=== PATIENT | male | born 1970 | race Caucasian/White ===

== ENCOUNTER 2021-01-05 10:20 | Emergency (ER) | payer BC ==
--- NOTE | 2021-01-05 10:37 | EDM.PDOCBH ---
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 He has not been eating since wed. He has been doing some vomiting. Onset: Gradual Duration: Week(s): Location: Reports: Generalized - Related Data Allergies Allergy/AdvReac Type Severity Reaction Status Date / Time No Known Allergies Allergy Verified 01/05/21 10:34 Home Meds: Home Meds NK [No Known Home Meds] 01/05/21 [History] ED ROS GENERAL - Review of Systems Review Of Systems: See Below Constitutional: Reports: No Symptoms HEENT: Reports: No Symptoms Respiratory: Reports: No Symptoms Cardiovascular: Reports: No Symptoms Endocrine: Reports: No Symptoms GI/Abdominal: Reports: Nausea, Vomiting : Reports: No Symptoms, Other ( urine looks very dark) Musculoskeletal: Reports: No Symptoms Skin: Reports: No Symptoms Neurological: Reports: No Symptoms Psychiatric: Reports: No Symptoms ED EXAM, BEHAVIORAL HEALTH - Physical Exam Exam: See Below Text/Narrative:: pt arrived with a history of drinking very heavy for the past 3-4 weeks. He is definitely wanting to stop drinking. He wishes to go to detox. Exam Limited By: No Limitations General Appearance: Alert, Anxious, Mild Distress Ears: Normal TMs Nose: Normal Inspection Throat/Mouth: Normal Inspection Head: Atraumatic Neck: Normal Inspection Respiratory/Chest: No Respiratory Distress Cardiovascular: Regular Rate, Rhythm GI/Abdominal: Soft, Non-Tender (Male) Exam: Deferred Rectal (Males) Exam: Deferred Back Exam: Normal Inspection Extremities: Normal Inspection COURSE, BEHAVIORAL HEALTH COMP - Course Vital Signs: Last Vital Signs Temp 36.3 C 01/05/21 10:39 Pulse 87 01/05/21 12:14 Resp 18 01/05/21 12:14 BP 142/102 H 01/05/21 12:14 Pulse Ox 96 01/05/21 10:39 Orders, Labs, Meds: Laboratory Tests 01/05/21 01/05/21 01/05/21 Range/Units 10:40 10:40 10:43 WBC 10.0 (4.5-11.0) K/uL RBC 5.95 H (4.30-5.90) M/uL Hgb 18.1 H* (12.0-15.0) g/dL Hct 49.1 (40.0-54.0) % MCV 83 (80-98) fL MCH 30 (27-31) pg MCHC 37 H (32-36) % Plt Count 332 (150-400) K/uL Neut % (Auto) 79.9 H (36-66) % Lymph % (Auto) 12.1 L (24-44) % [place] % (Auto) 6.0 (2-6) % Eos % (Auto) 1.5 L (2-4) % Baso % (Auto) 0.5 (0-1) % Sodium (140-148) mmol/L Potassium (3.6-5.2) mmol/L Chloride (100-108) mmol/L Carbon Dioxide (21-32) mmol/L Anion Gap (5.0-14.0) mmol/L BUN (7-18) mg/dL Creatinine (0.8-1.3) mg/dL Est Cr Clr Drug Dosing mL/min Estimated GFR (MDRD) (>60) Glucose (74-106) mg/dL Calcium (8.5-10.1) mg/dL Total Bilirubin (0.2-1.0) mg/dL AST (15-37) U/L ALT (12-78) U/L Alkaline Phosphatase (46-116) U/L Total Protein (6.4-8.2) g/dL Albumin (3.4-5.0) g/dL Globulin (2.3-3.5) g/dL Albumin/Globulin Ratio (1.2-2.2) Urine Color Yellow (YELLOW) Urine Appearance Clear (CLEAR) Urine pH 6.0 (5.0-8.0) Ur Specific [place] 1.020 (1.008-1.030) Urine Protein Trace H (NEGATIVE) mg/dL Urine Glucose (UA) Negative (NEGATIVE) mg/dL Urine Ketones 15 H (NEGATIVE) mg/dL Urine Occult Blood Small H (NEGATIVE) Urine Nitrite Negative (NEGATIVE) Urine Bilirubin Negative (NEGATIVE) Urine Urobilinogen 0.2 (0.2-1.0) EU/dL Ur Leukocyte Esterase Negative (NEGATIVE) Urine RBC 5-10 H (0-5) Urine WBC 0-5 (0-5) Ur Epithelial Cells Not seen Amorphous Sediment Not seen Urine Bacteria Rare Urine Mucus Few Urine Opiates Screen Negative (NEGATIVE) Ur Oxycodone Screen Negative (NEGATIVE) Urine Methadone Screen Negative (NEGATIVE) Ur Propoxyphene Screen Negative (NEGATIVE) Ur Barbiturates Screen Negative (NEGATIVE) Ur Tricyclics Screen Negative (NEGATIVE) Ur Phencyclidine Scrn Negative (NEGATIVE) Ur Amphetamine Screen Negative (NEGATIVE) U Methamphetamines Scrn Negative (NEGATIVE) Urine MDMA Screen Negative (NEGATIVE) U Benzodiazepines Scrn Negative (NEGATIVE) U Cocaine Metab Screen Negative (NEGATIVE) U Marijuana (THC) Screen Negative (NEGATIVE) Ethyl Alcohol mg/dL 01/05/21 01/05/21 Range/Units 10:43 10:43 WBC (4.5-11.0) K/uL RBC (4.30-5.90) M/uL Hgb (12.0-15.0) g/dL Hct (40.0-54.0) % MCV (80-98) fL MCH (27-31) pg MCHC (32-36) % Plt Count (150-400) K/uL Neut % (Auto) (36-66) % Lymph % (Auto) (24-44) % [place] % (Auto) (2-6) % Eos % (Auto) (2-4) % Baso % (Auto) (0-1) % Sodium 138 L (140-148) mmol/L Potassium 4.1 (3.6-5.2) mmol/L Chloride 99 L (100-108) mmol/L Carbon Dioxide 25 (21-32) mmol/L Anion Gap 18.1 H (5.0-14.0) mmol/L BUN 7 (7-18) mg/dL Creatinine 0.9 (0.8-1.3) mg/dL Est Cr Clr Drug Dosing 103.64 mL/min Estimated GFR (MDRD) > 60 (>60) Glucose 106 (74-106) mg/dL Calcium 9.1 (8.5-10.1) mg/dL Total Bilirubin 2.6 H (0.2-1.0) mg/dL AST 25 (15-37) U/L ALT 33 (12-78) U/L Alkaline Phosphatase 97 (46-116) U/L Total Protein 7.7 (6.4-8.2) g/dL Albumin 4.1 (3.4-5.0) g/dL Globulin 3.6 H (2.3-3.5) g/dL Albumin/Globulin Ratio 1.1 L (1.2-2.2) Urine Color (YELLOW) Urine Appearance (CLEAR) Urine pH (5.0-8.0) Ur Specific [place] (1.008-1.030) Urine Protein (NEGATIVE) mg/dL Urine Glucose (UA) (NEGATIVE) mg/dL Urine Ketones (NEGATIVE) mg/dL Urine Occult Blood (NEGATIVE) Urine Nitrite (NEGATIVE) Urine Bilirubin (NEGATIVE) Urine Urobilinogen (0.2-1.0) EU/dL Ur Leukocyte Esterase (NEGATIVE) Urine RBC (0-5) Urine WBC (0-5) Ur Epithelial Cells Amorphous Sediment Urine Bacteria Urine Mucus Urine Opiates Screen (NEGATIVE) Ur Oxycodone Screen (NEGATIVE) Urine Methadone Screen (NEGATIVE) Ur Propoxyphene Screen (NEGATIVE) Ur Barbiturates Screen (NEGATIVE) Ur Tricyclics Screen (NEGATIVE) Ur Phencyclidine Scrn (NEGATIVE) Ur Amphetamine Screen (NEGATIVE) U Methamphetamines Scrn (NEGATIVE) Urine MDMA Screen (NEGATIVE) U Benzodiazepines Scrn (NEGATIVE) U Cocaine Metab Screen (NEGATIVE) U Marijuana (THC) Screen (NEGATIVE) Ethyl Alcohol 1 mg/dL Medications Discontinued Medications Generic Name Dose Route Start Last Admin Trade Name Freq PRN Reason Stop Dose Admin Sodium Chloride 1,000 mls @ 999 mls/hr 01/05/21 11:15 01/05/21 11:08 Normal Saline IV 999 mls/hr ASDIRECTED JI Administration Sodium Chloride 1,000 mls @ 999 mls/hr 01/05/21 12:15 01/05/21 12:09 Normal Saline IV 999 mls/hr ASDIRECTED JI Administration Lorazepam 0.5 mg 01/05/21 11:04 01/05/21 11:16 Lorazepam 2 Mg/Ml Sdv IVPUSH 01/05/21 11:05 Not Given ONETIME ONE Lorazepam 1 mg 01/05/21 11:06 01/05/21 11:12 Lorazepam 2 Mg/Ml Sdv IVPUSH 01/05/21 11:07 1 mg ONETIME ONE Administration Lorazepam 1 mg 01/05/21 12:26 01/05/21 13:13 Lorazepam 2 Mg/Ml Sdv IVPUSH 01/05/21 12:27 1 mg ONETIME ONE Administration Lorazepam 1 mg 01/05/21 14:22 01/05/21 14:26 Lorazepam 1 Mg Tab PO 01/05/21 14:23 1 mg ONETIME ONE Administration Nicotine 21 mg 01/05/21 14:00 01/05/21 14:16 Nicotine 21 Mg/24 Hr Patch TRDERM 01/05/21 14:01 21 mg ONETIME ONE Administration Medical Clearance: 01/05/21 12:44 pt has good looking labs. His bp has been borderline. He has not been on meds to control his bp. Pt was dehydrated so he was given 2 liters of fluid. Departure - Departure Time of Disposition: 14:35 Disposition: DC/Tfer to [facility] Hosp/Unit [facility] Condition: Fair Clinical Impression: ETOH abuse, Elevated BP without diagnosis of hypertension - Discharge Information Referrals: PCP,Unknown [Primary Care Provider] - Forms: ED Department Discharge Care Plan Goals: transfer to [place] for detox. Sepsis Event Note (ED) - Evaluation Sepsis Screening Result: No Definite Risk
[2021-01-05] MEDS ORDERED: LORazepam 2 MG/ML SDV IVPUSH ONE ×3 (11:04→12:26)
[2021-01-05] MEDS ORDERED: Sodium Chloride 0.9% 1,000 ML IV SCH ×2 (11:15→12:15)
[2021-01-05] MEDS ORDERED: Nicotine 21 MG/24 Hr Patch TRDERM ONE (14:00)
[2021-01-05] MEDS ORDERED: LORazepam 1 MG Tab PO ONE (14:22)
== END 2021-01-05 14:32 ==
LOC: JP.ED 10:20
DX: F10.10 Alcohol abuse, uncomplicated (principal); R03.0 Elevated blood-pressure reading, without diagnosis of hypertension; Y90.0 Blood alcohol level of less than 20 mg/100 ml
CPT/HCPCS: 36415; 80053; 80305; 80307; 81001; 85025; 96374; 96376; 99284; A9270; J2060; J7030

== ENCOUNTER 2021-02-07 00:13 | Emergency (ER) | payer BC ==
[2021-02-07] MEDS ORDERED: LORazepam 1 MG Tab PO ONE (01:02)
[2021-02-07] MEDS ORDERED: Ketorolac 30 MG/ML SDV IM ONE (01:02)
--- NOTE | 2021-02-07 01:05 | EDM.PDOCBH ---
ED HPI GENERAL MEDICAL PROBLEM - General Chief Complaint: Drug or Alcohol Abuse Stated Complaint: EVAL Time Seen by Provider: 02/07/21 00:59 Source of Information: Reports: Patient, Old Records, RN Notes Reviewed History Limitations: Reports: Intoxication - History of Present Illness INITIAL COMMENTS - FREE TEXT/NARRATIVE: 42-year-old gentleman presents emergency department day complaint of headache, he has been consuming alcohol this evening has had troubles with high blood pressure was evaluated emergency department last month same complaint elevated blood pressures at that time treated with Ativan which did provide some relief. [place] but [place] returning home this week and Frontal Headache Pain Score (Numeric/FACES): 7 - Related Data Allergies Allergy/AdvReac Type Severity Reaction Status Date / Time No Known Allergies Allergy Verified 02/07/21 00:58 Home Meds: Home Meds lisinopriL [Lisinopril] 10 mg PO DAILY #30 tablet 02/07/21 [Rx] Past Medical History Cardiovascular History: Reports: Hypertension Psychiatric History: Reports: Addiction - Past Surgical History Musculoskeletal Surgical History: Reports: Other (See Below) Other Musculoskeletal Surgeries/Procedures:: Lawrence in left leg/hip Social & Family History - Tobacco Use Tobacco Use Status *Q: Current Every Day Tobacco User Years of Tobacco use: 30 Packs/Tins Daily: 1 - Caffeine Use Caffeine Use: Reports: Coffee, Tea - Alcohol Use Days Per Week of Alcohol Use: 7 Number of Drinks Per Day: 10 Total Drinks Per Week: 70 Date of Last Drink: 02/06/21 - Recreational Drug Use Recreational Drug Use: No ED ROS GENERAL - Review of Systems Review Of Systems: See Below Constitutional: Reports: No Symptoms HEENT: Reports: No Symptoms Respiratory: Reports: No Symptoms Cardiovascular: Reports: No Symptoms GI/Abdominal: Reports: No Symptoms : Reports: No Symptoms Musculoskeletal: Reports: No Symptoms Neurological: Reports: Headache Psychiatric: Reports: Anxiety ED EXAM, BEHAVIORAL HEALTH - Physical Exam Exam: See Below Exam Limited By: Intoxication General Appearance: Alert, WD/WN, No Apparent Distress Respiratory/Chest: No Respiratory Distress, Lungs Clear, Normal Breath Sounds, No Accessory Muscle Use, Chest Non-Tender Cardiovascular: Regular Rate, Rhythm, No Murmur COURSE, BEHAVIORAL HEALTH COMP - Course Vital Signs: Last Vital Signs Temp 96.9 F 02/07/21 00:59 Pulse 80 02/07/21 02:47 Resp 18 02/07/21 00:59 BP 173/122 H 02/07/21 02:47 Pulse Ox 100 02/07/21 00:59 Orders, Labs, Meds: Medications Discontinued Medications Generic Name Dose Route Start Last Admin Trade Name Katarzyna PRN Reason Stop Dose Admin Ketorolac Tromethamine 30 mg 02/07/21 01:02 02/07/21 01:08 Ketorolac 30 Mg/Ml Sdv IM 02/07/21 01:03 30 mg ONETIME ONE Administration Lisinopril 10 mg 02/07/21 02:00 02/07/21 02:05 Lisinopril 10 Mg Tab PO 02/07/21 02:01 10 mg ONETIME ONE Administration Lorazepam 1 mg 02/07/21 01:02 02/07/21 01:08 Lorazepam 1 Mg Tab PO 02/07/21 01:03 1 mg ONETIME ONE Administration Departure - Departure Time of Disposition: 03:24 Disposition: Home, Self-Care 01 Condition: Fair Clinical Impression: Essential hypertension - Discharge Information Prescriptions: lisinopriL [Lisinopril] 10 mg PO DAILY #30 tablet Instructions: How to Take Your Blood Pressure, [id number], Hypertension, Adult, [id number] Referrals: PCP,None [Primary Care Provider] - Forms: ED Department Discharge Additional Instructions: Use Ativan as needed for anxiety symptoms, your blood pressure medication has been faxed to [facility] will be available tomorrow, please followup with your primary care provider upon return home, please call return to the emergency department with worsening of symptoms. Sepsis Event Note (ED) - Evaluation Sepsis Screening Result: No Definite Risk - Focused Exam Vital Signs: Vital Signs Temp Pulse Resp BP BP Pulse Ox 02/07/21 02:47 80 173/122 H 02/07/21 02:05 178/126 H 02/07/21 00:59 96.9 F 82 18 175/120 H 100 - Assessment/Plan Plan: Assessment Acuity = acute Site and laterality = essential hypertension Etiology = unknown Manifestations = none Location of injury = Home Lab values = none Plan Good improvement combination Ativan Toradol and lisinopril he is discharged home Ativan 1 mg p.o. 3 times daily as needed total #10 and also lisinopril 10 mg 1 tab p.o. daily total of 30 faxed to 32-year-old walker he will follow-up with primary care upon return home This note was dictated using [employer] voice recognition software please call with any questions on syntax or grammar.
[2021-02-07] MEDS ORDERED: Lisinopril 10 MG Tab PO ONE (02:00)
== END 2021-02-07 03:31 | disposition home or self-care (01) ==
LOC: JP.ED 00:13
DX: I10 Essential (primary) hypertension (principal); Z72.0 Tobacco use; Z79.899 Other long term (current) drug therapy
CPT/HCPCS: 96372; 99283; A9270; J1885